=== PATIENT | male | born 1975 | race Caucasian/White ===

== ENCOUNTER 2016-10-17 11:51 | Day surgery (SDC) | payer BC ==
[~2016-10-17] VITALS: Ht 177.8 cm; Wt 75.0 kg
[2016-10-17 12:41] VITALS: Ht 177.8 cm; Wt 75.0 kg
[2016-10-17] MEDS ORDERED: OMEPRAZOLE (12:52)
[2016-10-17] MEDS ORDERED: PROPOFOL 20 ML ONE (14:19)
[2016-10-17 14:43] VITALS: BP 111/73; PULSE 70; RESP 15
[2016-10-17 15:25] VITALS: BP 110/68; PULSE 69; RESP 18
--- NOTE | 2016-10-18 04:28 | GILP ---
DATE OF PROCEDURE: 10/17/2016 PROCEDURE: Esophagogastroduodenoscopy with biopsies. BRIEF HISTORY AND INDICATIONS: The patient is being evaluated for reflux symptoms. PREMEDICATION: Monitored anesthesia care by anesthesiologist. SURGEON: Rafaela Reyes MD INSTRUMENT USED: Olympus panendoscope. TECHNIQUE: After informed consent, with the patient/relatives understanding the procedure, its indic ations, potential risks and complications, including but not limited to: allergic reaction, bleeding , perforation or infection, and after all pertinent questions were answered to the patients satisfac tion, the patient/relatives signed witnessed informed consent. Following this, premedication was administered slowly IV push under careful cardiovascular and respi ratory monitoring with pulse oximetry, automatic blood pressure and link knitting machine operator. Once the sedative effect was achieved the patient was place in the left lateral decubitus, the panen doscope was introduced and advanced under visual control. Careful examination of the upper gastrointestinal tract, both on insertion as well as withdrawal of the instrument disclosed the following findings: ESOPHAGUS: The distal esophagus shows mild erythema of the mucosa at the EG junction. STOMACH: Upon entrance to the stomach, air was insufflated, the gastric gunter distended normally. There is erythema and edema of the mucosa of a moderate degree. Biopsies were obtained to rule out H. pylori infection. PYLORUS: The pylorus appears patent and within normal limits, with no evidence of gastric outlet ob struction. DUODENUM: The duodenal mucosa was carefully examined in the duodenal bulb as well as the second por tion of the duodenum and appears unremarkable with no evidence of duodenitis, ulcer or neoplasm. The instrument was then withdrawn, the patient tolerated the procedure well and was transfer out of the endoscopy suite awake, and in good condition to continue recovery under observation IMPRESSION: 1. Mild distal esophagitis. 2. Moderate gastritis, rule out H. pylori infection, biopsies obtained. PLAN: The patient will be treated with PPIs. Further recommendation will depend on his clinical co urse as well as review of biopsies. Dictated By: RAFAELA REYES MS/MARCELLO Conf#: [id number] DID#: [id number]
== END 2016-10-17 16:26 | disposition home or self-care (01) ==
LOC: GIL 11:51
PROVIDERS: ATTEND Internal Medicine Gastroenterology
DX: K29.30 Chronic superficial gastritis without bleeding (principal); K20.8 Other esophagitis
CPT/HCPCS: 88305; 88312